=== PATIENT | male | born 1945 | race Caucasian/White ===

== ENCOUNTER 2024-10-30 23:58 | Emergency (ER) | payer BC ==
[~2024-10-30] VITALS: Ht 182.9 cm; Wt 95.0 kg
[2024-10-31 00:02] VITALS: BP 151/57; TEMP 98.4; O2SAT 97
[2024-10-31] MEDS ORDERED: BENZ-38 PO (01:57)
[2024-10-31 02:02] VITALS: PULSE 87; RESP 20
== END 2024-10-31 02:04 | disposition home or self-care (01) ==
LOC: ER 23:58
DX: R05.9 Cough, unspecified (principal); Z20.822 Contact with and (suspected) exposure to COVID-19; E78.00 Pure hypercholesterolemia, unspecified; I10 Essential (primary) hypertension
CPT/HCPCS: 36415; 71045; 87502; 87503; 87811; 99284